=== PATIENT | female | born 1975 ===

== ENCOUNTER 2018-04-28 22:57 | Emergency (ER) | payer BC, MEDICAID ==
[2018-04-28 22:57] VITALS: BMI 31.3
[2018-04-28 23:08] VITALS: BP 130/87; PULSE 95; RESP 18; TEMP 98.7; O2SAT 98
[2018-04-28] MEDS ORDERED: Lidocaine 2% Jelly (Uro-Jet) ONE (23:43)
[2018-04-28] MEDS ORDERED: Lidocaine 2% Jelly (Uro-Jet) TOP ONE (23:48)
--- NOTE | 2018-04-29 00:01 | C.PDOC ---
History Of Present Illness 42 year old female presents to the ED c/o rectal pain after bowel movement today. Patient states she has not had a bowel movement in a week after her tonsillectomy. Patient reports she has been taking Tylenol/Codeine daily for pain. Patient states today she forcefully strained when she was in the bathroom causing her pain and swelling to rectal area. Patient denies abdominal pain, blood in the stool, back pain, dizziness. Time Seen by Provider: 04/28/18 23:14 Chief Complaint (Nursing): GI Problem History Per: Patient History/Exam Limitations: no limitations Onset/Duration Of Symptoms: Days Current Symptoms Are (Timing): Still Present Recent travel outside of the [place]: No Additional History Per: Patient Past Medical History Reviewed: Historical Data, Nursing Documentation, Vital Signs Vital Signs: Last Vital Signs Temp 98.7 F 04/28/18 23:05 Pulse 95 H 04/28/18 23:05 Resp 18 04/28/18 23:05 BP 130/87 04/28/18 23:05 Pulse Ox 98 04/29/18 01:21 - Medical History PMH: Anxiety, Asthma, Gastritis, HTN, Hypercholesterolemia, Hypothyroidism, Sleep Apnea (HAS CPAP AT HOME BUT DOESNT WANT TO USE IT) Denies: Chronic Kidney Disease Surgical History: Tonsillectomy (04/21/18) - [facility] Procedures INJECT ANTIBIOTIC (05/08/05) INJECT/INFUSE NEC (05/08/05) Family History: States: Unknown Family Hx - Social History Hx Alcohol Use: No Hx Substance Use: Yes (USES WE[employer]) - Immunization History Hx Tetanus Toxoid Vaccination: No Hx Influenza Vaccination: No Hx Pneumococcal Vaccination: No Review Of Systems Constitutional: Negative for: Fever, Chills Gastrointestinal: Positive for: Constipation. Negative for: Nausea, Vomiting, Abdominal Pain Musculoskeletal: Negative for: Back Pain Skin: Negative for: Rash Neurological: Negative for: Weakness, Numbness Physical Exam - Physical Exam Appears: Non-toxic, No Acute Distress Skin: Normal Color, Warm, Dry Head: Atraumatic, Normacephalic Eye(s): bilateral: Normal Inspection Neck: Normal ROM, Supple Chest: Symmetrical Cardiovascular: Rhythm Regular Respiratory: Normal Breath Sounds, No Rales, No Rhonchi, No Wheezing Gastrointestinal/Abdominal: Soft, No Tenderness, No Guarding, No Rebound Rectal: Hemorrhoids (2 external), Other (no anal fisures) Extremity: Normal ROM, No Tenderness, No Swelling Neurological/Psych: Oriented x3, Normal Speech Gait: Steady ED Course And Treatment O2 Sat by Pulse Oximetry: 98 (ON RA) Pulse Ox Interpretation: Normal Progress Note: Plan: - Toradol 30 mg IM. - Xylocaine 1 ea TOP. - Zofran 4 mg PO. Patient was given pain medications, was given xyloicaine gel for use at home to relieve pain. Patient wad advised to follow up with PMD and to return if symptoms worsen. Disposition Counseled Patient/Family Regarding: Diagnosis, Need For Followup - Disposition Referrals: Shaik Victor MD [Primary Care Provider] - Disposition: HOME/ ROUTINE Disposition Time: 23:55 Condition: STABLE Additional Instructions: Do sitz baths/ or apply warm compress to area Use cream as prescribed High fiber diet Return to ER if worse Please follow up with PMD Prescriptions: Docusate [Colace] 100 mg PO TID #30 cap Hydrocortisone 2.5% (Rectal) [Anusol-HC] 30 applic CA BID #1 tube Instructions: High Fiber Diet, Hemorrhoids (DC) Forms: [email or web address] (Bhutanese) - Clinical Impression Clinical Impression: External hemorrhoid - PA / INTERCEPTOR OPERATOR / Resident Statement MD/DO has reviewed & agrees with the documentation as recorded. - Scribe Statement The provider has reviewed the documentation as recorded by the Scribe Jose Sprague All medical record entries made by the Scribe were at my direction and personally dictated by me. I have reviewed the chart and agree that the record accurately reflects my personal performance of the history, physical exam, medical decision making, and the department course for this patient. I have also personally directed, reviewed, and agree with the discharge instructions and disposition.
== END 2018-04-29 00:07 | disposition home or self-care (01) ==
LOC: SUPCPDRO 22:57 → C.ER 22:57
DX: K64.4 Residual hemorrhoidal skin tags (principal)
CPT/HCPCS: 96372; 99283; J1885